=== PATIENT | female | born 1995 | race Caucasian/White ===

== ENCOUNTER 2020-07-15 08:10 | Outpatient (REF) | payer OTHER, SELFPAY ==
[2020-07-15 15:55] LABS: CT PCR NOT DETECTED (Not Detect.); NG PCR NOT DETECTED (Not Detect.)
== END 2020-07-15 08:11 | disposition home or self-care (01) ==
LOC: HO.LAB 08:10
PROVIDERS: PCP Physician Assistant; Referring Provider Physician Assistant; Visit Provider Obstetrics & Gynecology
DX: N93.0 Postcoital and contact bleeding (principal); N80.9 Endometriosis, unspecified
CPT/HCPCS: 81025; 87491; 87591; 99213

== ENCOUNTER 2020-07-21 15:59 | Outpatient (REF) | payer OTHER, SELFPAY ==
--- NOTE | 2020-07-21 16:02 | US_ITS ---
EXAMINATION: US PELVIS ULTRASOUND CLINICAL INFORMATION: Post coital and contact bleeding. Age 25. LMP 05/05/2020 COMPARISON: None TECHNIQUE: Ultrasound of the pelvis is performed using both transabdominal and transvaginal transducers along with Doppler. Transvaginal imaging is performed due to inadequate visualization transabdominally. FINDINGS: Uterus: The uterus is anteverted and measures 9.0 x 2.6 x 4.4 cm. The double wall endometrial thickness is normal at 3 mm. There is some fluid within the endocervical canal. Cervix otherwise unremarkable. The uterus is smooth in contour and has normal myometrial echogenicity. No visible fibroid. Adnexa: Both ovaries are visualized. There is normal color flow to the adnexa. There is no ovarian torsion. There is no pelvic ascites or fluid collection. Right ovary measures 2.5 x 1.5 x 1.6 cm. Volume 3.1 mL. Left ovary measures 2.0 x 1.3 x 1.9 cm. Volume 2.6 mL. US/US transvaginal IMPRESSION: 1. Normal endometrial thickness. No visible fibroid. 2. Trace fluid in endocervical canal, otherwise unremarkable. 3. No adnexal mass or pelvic ascites.
--- NOTE | 2020-07-21 16:02 | US_ITS ---
EXAMINATION: US PELVIS ULTRASOUND CLINICAL INFORMATION: Post coital and contact bleeding. Age 25. LMP 05/05/2020 COMPARISON: None TECHNIQUE: Ultrasound of the pelvis is performed using both transabdominal and transvaginal transducers along with Doppler. Transvaginal imaging is performed due to inadequate visualization transabdominally. FINDINGS: Uterus: The uterus is anteverted and measures 9.0 x 2.6 x 4.4 cm. The double wall endometrial thickness is normal at 3 mm. There is some fluid within the endocervical canal. Cervix otherwise unremarkable. The uterus is smooth in contour and has normal myometrial echogenicity. No visible fibroid. Adnexa: Both ovaries are visualized. There is normal color flow to the adnexa. There is no ovarian torsion. There is no pelvic ascites or fluid collection. Right ovary measures 2.5 x 1.5 x 1.6 cm. Volume 3.1 mL. Left ovary measures 2.0 x 1.3 x 1.9 cm. Volume 2.6 mL. US/US pelvic complete IMPRESSION: 1. Normal endometrial thickness. No visible fibroid. 2. Trace fluid in endocervical canal, otherwise unremarkable. 3. No adnexal mass or pelvic ascites.
== END 2020-07-21 16:00 | disposition home or self-care (01) ==
LOC: HO.US 15:59
PROVIDERS: PCP Physician Assistant; Visit Provider Obstetrics & Gynecology
DX: N93.0 Postcoital and contact bleeding (principal)
CPT/HCPCS: 76830; 76856

== ENCOUNTER 2020-08-18 09:32 | Outpatient (REF) | payer OTHER, SELFPAY | END 2020-08-18 09:33 | disposition home or self-care (01) | LOC: HO.LAB 09:32 | PROVIDERS: PCP Physician Assistant; Visit Provider Obstetrics & Gynecology | DX: N80.9 Endometriosis, unspecified (principal); N93.0 Postcoital and contact bleeding | CPT/HCPCS: 58100; 88305 ==

== ENCOUNTER → 2020-08-27 11:07 | Outpatient (BNVA) | payer OTHER, SELFPAY | PROVIDERS: Visit Provider Obstetrics & Gynecology | DX: Z76.89 Persons encountering health services in other specified circumstances (principal) ==

== ENCOUNTER 2020-12-01 10:37 | Outpatient (REF) | payer OTHER, SELFPAY ==
[2020-12-01 12:36] LABS: MANUAL DIFF FLAG NO
[2020-12-01 12:43] LABS: Basophils Absolute Auto 0.1 X10*3/uL (0.0-0.2); Basophils Percent Auto 1.3 % (0-2); Eosinophils Absolute Auto 0.3 X10*3/uL (0.0-0.4); Eosinophils Percent Auto 4.1 % (0-4); Hematocrit 39.4 % (37-47); Hemoglobin 13.7 g/dl (12.0-16.0); Imm Gran Abs Auto 0.02 X10*3/uL (0.00-0.03); Imm Gran Pct Auto 0.3 % (0.0-0.4); Lymphocytes Absolute Auto 2.3 X10*3/uL (1.2-4.9); Lymphocytes Percent Auto 36.8 % (20-40); Mean Corpuscular HGB Conc 34.8 g/dl (31.0-35.0); Mean Corpuscular Volume 86.2 fL (80-98); Mean Platelet Volume 9.8 fL (9.4-12.3); Monocytes Absolute Auto 0.4 X10*3/uL (0.1-1.2); Monocytes Percent Auto 6.2 % (2-11); Neutrophils Absolute Auto 3.2 X10*3/uL (2.0-8.3); Neutrophils Percent Auto 51.3 % (45-73); Platelet Count 241 X10*3/uL (160-400); Red Blood Count 4.57 X10*6/uL (4.20-5.50); Red Cell Distribution Width 12.3 % (11.0-16.0); White Blood Count 6.3 X10*3/uL (4.8-10.8)
[2020-12-01 13:15] LABS: Alanine Aminotransferase 13 U/L (0-31); Albumin Level 4.3 g/dL (3.5-5.0); Alkaline Phosphatase 45 U/L (39-117); Anion Gap 13 (12-20); Aspartate Amino Transferase 17 U/L (5-31); Bilirubin Total 0.7 mg/dL (0.0-1.0); Blood Urea Nitrogen 10 mg/dL (9-16); Calcium 8.9 mg/dL (8.4-10.2); Carbon Dioxide 23 mmol/L (22-29); Chloride 106 mmol/L (96-108); Estimated Glomerular Filt Rate > 60; Glucose Fasting 78 mg/dL (60-99); Potassium 4.4 mmol/L (3.3-5.1); Sodium 138 mmol/L (135-145)
== END 2020-12-01 10:38 | disposition home or self-care (01) ==
LOC: HO.MANLDS 10:37
PROVIDERS: PCP Internal Medicine; Visit Provider Physician Assistant
DX: Z00.00 Encounter for general adult medical examination without abnormal findings (principal)
CPT/HCPCS: 36415; 80053; 85025

== ENCOUNTER 2021-12-08 08:13 | Outpatient (REF) | payer OTHER, SELFPAY ==
[2021-12-08 12:17] LABS: Erythrocyte Sedimentation Rate 6 MM/HR (0-20)
[2021-12-09 18:06] LABS: Immunoglobulin E 869 kU/L (<OR=114)
[2021-12-09 19:11] LABS: Immunoglobulin A 204 mg/dL (47-310)
[2021-12-10 13:31] LABS: Antibody to SS-A Antigen <1.0 NEG AI (<1.0 NEG); Antibody to SS-B Antigen <1.0 NEG AI (<1.0 NEG)
[2021-12-10 15:30] LABS: Anti Nuclear Antibody Screen NEGATIVE (NEGATIVE)
[2021-12-13 11:37] LABS: HLA B27 Positive (Negative)
== END 2021-12-08 08:14 | disposition home or self-care (01) ==
LOC: HO.MANLDS 08:13
PROVIDERS: PCP Physician Assistant; Visit Provider Physician Assistant
DX: R21 Rash and other nonspecific skin eruption (principal)
CPT/HCPCS: 36415; 82784; 82785; 85652; 86038; 86039; 86235; 86812

== ENCOUNTER 2022-01-13 15:09 | Outpatient (REF) | payer OTHER, SELFPAY ==
[2022-01-13 18:01] LABS: MANUAL DIFF FLAG NO
[2022-01-13 18:12] LABS: Basophils Percent Auto 0.5 % (0-2); Eosinophils Absolute Auto 0.3 X10*3/uL (0.0-0.4); Eosinophils Percent Auto 4.2 % (0-4); Hematocrit 38.5 % (37.0-47.0); Imm Gran Abs Auto 0.02 X10*3/uL (0.00-0.03); Imm Gran Pct Auto 0.3 % (0.0-0.4); Lymphocytes Absolute Auto 1.8 X10*3/uL (1.2-4.9); Lymphocytes Percent Auto 27.6 % (20-40); Mean Corpuscular HGB Conc 33.8 g/dl (31.0-35.0); Mean Corpuscular Hemoglobin 29.1 pg (27.0-33.0); Mean Corpuscular Volume 86.1 fL (80.0-98.0); Mean Platelet Volume 9.7 fL (9.4-12.3); Monocytes Absolute Auto 0.9 X10*3/uL (0.1-1.2); Monocytes Percent Auto 14.1 % (2-11); Neutrophils Absolute Auto 3.5 x10*3/uL (2.0-8.3); Neutrophils Percent Auto 53.3 % (45-73); Platelet Count 200 X10*3/uL (160-400); Red Blood Count 4.47 X10*6/uL (4.20-5.50); Red Cell Distribution Width 12.5 % (11.0-16.0); White Blood Count 6.6 X10*3/uL (4.8-10.8)
[2022-01-13 18:16] LABS: C Reactive Protein 1.63 mg/dL (< or = 0.50); Iron 61 mcg/dL (30-160); Percent Iron Saturation 15 % (15-50); Total Iron Binding Capacity 411 mcg/dL (228-428); Unsaturated Iron Binding 350 ug/dL
[2022-01-13 18:38] LABS: Ferritin 90 ng/mL (10-122)
[2022-01-13 19:08] LABS: Erythrocyte Sedimentation Rate 11 MM/HR (0-20)
== END 2022-01-13 15:10 | disposition home or self-care (01) ==
LOC: HO.MANLDS 15:09
PROVIDERS: PCP Physician Assistant; Visit Provider Physician Assistant
DX: R53.81 Other malaise (principal)
CPT/HCPCS: 36415; 82728; 83540; 85025; 85652; 86140

== ENCOUNTER 2025-04-17 14:15 | Outpatient (REF) | payer OTHER, SELFPAY ==
--- OUTSIDE RECORDS SUMMARY | 2024-12-03 09:45 | XMS_ITS | Encounter Summary ---
Author Organization [facility] Address [address] [place] [phone] Phone Care Team Providers Care Gambling Cashier Name Role Phone Efren Dillon Primary Care Provider [phone] Encounter Details Date Type Department Care Team (Late st Contact Info) Description 12/03/2024 9:45 AM EDT Hospital Encounter [facility] [address] [place] [id number] Carlee Norman FNP [address] [place] [id number] [email or web address] Social History Tobacco Use Types Packs/Day Years Used Date Smoking Tobacco: Former Cigarettes Smokeless Tobacco: Never Alcohol Use Standard Drinks/Week Comments Not Currently 0 (1 standard drink = 0.6 oz pur e alcohol) Education Answer Date Recorded Are you interested in more education? Not on aleta e 01/14/2023 Are you concerned about learning? Not on file 01/14/2023 No 01/14/2023 No 01/14/2023 Digital Access Answer Date Recorded No 02/12/2023 No 02/12/2023 Reliable internet access at home? Not on file 02/12/2023 Device with a working camera? Not on file Comments Unknown Sex and Gender Information Value Date Recorded Sex Assigned at Female 01/14/2022 1:49 PM EDT Legal Sex Female 1:09 PM EDT Gender Identity Female 01/14/2022 1:49 PM EDT Sexual Orientation Not on file documented as of this encounter Plan of Treatment Not on file documented as of this encounter Procedures Procedure Name Priority Date/Time Associated Diagnosis Comments XR CHEST PA AND LATERAL 2 VIEWS Urgent/patient waiting 12/03/2024 9:48 AM EDT Viral upper respiratory tract infection with cough documented in this encounter Results * XR CHEST PA AND LATERAL 2 VIEWS (12/03/2024 9:48 AM EDT) Anatomical Region Laterality Modality Chest Computed Radiogr aphy 12/03/2024 9:56 AM EDT Impressions 12/03/2024 9:57 AM EDT No acute abnormality. Narrative 12/03/2024 9:57 AM EDT XR CHEST PA AND LATERAL 2 VIEWS Referring clinician's provided indication for this examination in [facility]: Cough; SOB, CHEST TIGHTNESS FOR ONE WEEK COMPARISON: XR CHEST PA AND LATERAL 2 VIEWS FINDINGS: Devices/Tubes/Lines: None. Lungs: No focal consolidation or pulmonary edema. Pleura: No pleural effusion or pneumothorax. Heart/Mediastinum: Normal heart and mediastinum. Bones/Soft Tissues: No significant abnormality. Procedure Note Nik Gilbert MD, PhD - 12/03/2024 XR CHEST PA AND LATERAL 2 VIEWS Referring clinician's provided indication for this examination in [facility]:Cough; SOB, CHEST TIGHTNESS FOR ONE WEEK COMPARISON: XR CHEST PA AND LATERAL 2 VIEWS FINDINGS: Devices/Tubes/Lines: None. Lungs: No focal consolidation or pulmonary edema. Pleura: No pleural effusion or pneumothorax. Heart/Mediastinum: Normal heart and mediastinum. Bones/Soft Tissues: No significant abnormality. IMPRESSION: No acute abnormality. Carlee Norman ADVANCED PRACTICE PROVIDER IMG XR CHEST Final Resul t documented in this encounter Visit Diagnoses Not on filedocumented in this encounter Additional Health Concerns Infection Onset Date Last Indicated Resolved Time CoV-Risk 12/03/2024 12/03/2024 12/14/2024 1:21 AM EDT documented as of this encounter Care Teams Gambling Cashier Relationship Specialty Start Date End Date Efren Dillon DO [address] [place] [address] PCP - General Internal Medicine 11/21/24 documented as of this encounter Additional Source Comments The information contained in this document represents components of the legal health record. It is not the complete legal health record.[facility]
== END 2025-04-17 14:16 | disposition home or self-care (01) ==
LOC: HO.MANLDS 14:15
PROVIDERS: Visit Provider Physician Assistant
DX: Z13.89 Encounter for screening for other disorder (principal)

== ENCOUNTER 2025-04-17 14:39 | Outpatient (REF) | payer OTHER, SELFPAY ==
[2025-04-17 15:08] LABS: MANUAL DIFF FLAG NO
[2025-04-17 15:10] LABS: Hematocrit 38.4 % (37.0-47.0); Hemoglobin 13.6 g/dl (12.0-16.0); Imm Gran Abs Auto 0.03 X10*3/uL (0.00-0.03); Imm Gran Pct Auto 0.4 % (0.0-0.4); Lymphocytes Absolute Auto 2.8 X10*3/uL (1.2-4.9); Mean Corpuscular HGB Conc 35.4 g/dl (31.0-35.0); Mean Corpuscular Hemoglobin 29.4 pg (27.0-33.0); Mean Corpuscular Volume 82.9 fL (80.0-98.0); NRBC Abs Auto 0.000 X10*3/uL (0.0-0.012); NRBC Pct Auto 0.0 /100WBC (0.0-0.2); Platelet Count 237 X10*3/uL (160-400); Red Blood Count 4.63 X10*6/uL (4.20-5.50); White Blood Count 8.5 X10*3/uL (4.8-10.8)
[2025-04-17 15:31] LABS: Alanine Aminotransferase 17 U/L (0-31); Albumin Level 4.7 g/dL (3.5-5.0); Alkaline Phosphatase 54 U/L (39-117); Anion Gap 12 (12-20); Aspartate Amino Transferase 26 U/L (5-31); Blood Urea Nitrogen 9 mg/dL (9-16); Calcium 9.1 mg/dL (8.4-10.2); Carbon Dioxide 25 mmol/L (22-29); Chloride 106 mmol/L (96-108); Estimated Glomerular Filt Rate > 60; Iron 80 mcg/dL (30-160); Percent Iron Saturation 21 % (15-50); Potassium 3.6 mmol/L (3.3-5.1); Sodium 139 mmol/L (135-145); Total Iron Binding Capacity 382 mcg/dL (228-428); Total Protein 7.6 g/dL (6.5-8.0); Unsaturated Iron Binding 302 ug/dL
[2025-04-17 15:44] LABS: Ferritin 77 ng/mL (10-122)
== END 2025-04-17 14:40 | disposition home or self-care (01) ==
LOC: HO.LAB 14:39
PROVIDERS: PCP Internal Medicine; Visit Provider Physician Assistant
DX: R51.9 Headache, unspecified (principal)
CPT/HCPCS: 36415; 80053; 82728; 83540; 85025; 85652; 86140; 87040